=== PATIENT | female | born 1955 | race Caucasian/White ===

== ENCOUNTER 2018-02-19 12:51 | Observation (INO) ==
[2018-02-19] MEDS ORDERED: Aspirin 325 MG Tablet PO ONE (13:20)
--- NOTE | 2018-02-19 13:27 | ED ---
HPI General Chief Complaint: Chest Pain Stated Complaint: cardiac Time Seen by Provider: 02/19/18 13:07 Source: patient and family Mode of arrival: ambulatory Limitations: no limitations History of Present Illness HPI narrative: 62 y/o female notes chest pain since yesterday. She states it goes up into her jaw. She states she will get sweaty. She denies other associated complaints. She notes history of high cholesterol but denies cardiac issues. She states she saw Dr. Hodges one year ago who did a CAT scan and wanted to do a stress test but it was going to be too expensive so she held off. She states she has not had any issues since then. She denies taking an aspirin yet today. She denies any active chest pain currently. complaint: chest pain Complete Quality Measures for STEMI Alert Patients STEMI Alert: No Duration: intermittent Pain location: substernal Pain radiation: jaw/teeth Relieving factors: nothing Exacerbating factors: nothing Treatments prior to arrival chest pain: none Related Data Home Medications Medication Instructions Recorded Confirmed clonazepam 1 mg PO PRN 02/19/18 02/19/18 cyclobenzaprine 10 mg PO TID PRN 02/19/18 02/19/18 folic acid 1 mg PO DAILY 02/19/18 02/19/18 gabapentin 300 mg PO TID 02/19/18 02/19/18 leflunomide 20 mg PO DAILY 02/19/18 02/19/18 metoprolol tartrate 25 mg PO DAILY 02/19/18 02/19/18 morphine 15 mg PO BID 02/19/18 02/19/18 morphine 30 mg PO TID 02/19/18 02/19/18 prednisone 2.5 mg PO DAILY 02/19/18 02/19/18 rosuvastatin 20 mg PO DAILY 02/19/18 02/19/18 Allergies Allergy/AdvReac Type Severity Reaction Status Date / Time meloxicam Allergy Unknown Bleeding Verified 02/19/18 13:22 penicillin G Allergy Unknown Anaphylaxis Verified 02/19/18 13:22 topiramate Allergy Unknown Dizziness Verified 02/19/18 13:22 verapamil Allergy Unknown Dizziness Verified 02/19/18 13:22 Review of Systems ROS: all other systems reviewed are negative [facility] Medical History Medical History Arthritis (Acute) Back pain (Acute) Cysts of both ovaries (Acute) High cholesterol (Acute) Migraines (Acute) Surgical History Surgical History History of appendectomy (Acute) Hx of tonsillectomy (Acute) Social History Social History Substance History: No History of Abuse Smoking Status: Never smoker How Often Do You Have a Drink Containing Alcohol: Never Recent Travel in [facility] within the Last 8 Weeks: No Recent Out of Country Travel within the Last 8 Weeks: No Immunization History Tetanus Immunization: >5 Years Hx Influenza Vaccine This Season: Yes Exam Narrative Exam Narrative: GENERAL: 62 y/o female in no apparent distress SKIN: Focused skin assessment warm/dry. HEAD: Atraumatic. Normocephalic. EYES: Pupils equal and round. No scleral icterus. No injection or drainage. ENT: No nasal bleeding or discharge. Mucous membranes pink and moist. NECK: Trachea midline. No JVD. CARDIOVASCULAR: Regular rate and rhythm. No murmur appreciated. RESPIRATORY: No accessory muscle use. Clear to auscultation. Breath sounds equal bilaterally. GASTROINTESTINAL: Abdomen soft, non-tender, nondistended. Hepatic and splenic margins not palpable. MUSCULOSKELETAL: No obvious deformities. No clubbing. No cyanosis. No edema. NEUROLOGICAL: Awake and alert. No obvious cranial nerve deficits. Motor grossly within normal limits. Normal speech. PSYCHIATRIC: Appropriate mood and affect; insight and judgment normal. Course Reevaluation(s) Reevaluation #1: Patient updated and agrees to chest pain center observation Initial Documented Vital Signs Temperature 98.4 F 02/19/18 12:59 Pulse Rate 82 02/19/18 12:59 Respiratory Rate 17 02/19/18 12:59 Blood Pressure 141/101 H 02/19/18 12:59 Pulse Oximetry 99 02/19/18 12:59 Last Documented Vital Signs Temperature 98.4 F 02/19/18 12:59 Pulse Rate 78 02/19/18 14:07 Respiratory Rate 18 02/19/18 14:07 Blood Pressure 125/74 02/19/18 14:07 Pulse Oximetry 95 02/19/18 14:07 Medical Decision Making MDM Narrative Medical decision making narrative: Will check workup and dose with aspirin nitro and reevaluate. Cardiac risk factors are age and high cholesterol Medical Screen Exam Complete: Yes Emergency Medical Condition: Yes Differential Diagnosis Differential Diagnosis: Musculoskeletal, gastritis, atypical cardiac Lab Data Lab results reviewed: Yes I reviewed the patient's lab results. Result diagrams: 02/19/18 13:23 02/19/18 13:23 Lab Results 02/19/18 02/19/18 02/19/18 Range/Units 13:23 13:23 13:23 WBC 4.4 (4.0-11.0) th/mm3 RBC 4.27 (4.00-5.30) mil/mm3 Hgb 12.0 (11.6-15.3) gm/dL Hct 36.5 (35.0-46.0) % MCV 85.6 (80.0-100.0) fL MCH 28.1 (27.0-34.0) pg MCHC 32.8 (32.0-36.0) % RDW 13.9 (11.6-17.2) % Plt Count 204 (150-450) th/mm3 MPV 8.9 (7.0-11.0) fL Neut % (Auto) 55.2 (16.0-70.0) % Lymph % (Auto) 31.1 (9.0-44.0) % [place] % (Auto) 9.8 H (0.0-8.0) % Eos % (Auto) 2.7 (0.0-4.0) % Baso % (Auto) 1.2 (0.0-2.0) % Neut # (Auto) 2.4 (1.8-7.7) th/mm3 Lymph # (Auto) 1.4 (1.0-4.8) th/mm3 [place] # (Auto) 0.4 (0.0-0.9) th/mm3 Eos # (Auto) 0.1 (0.0-0.4) th/mm3 Baso # (Auto) 0.1 (0.0-0.2) th/mm3 WBC Differential . Differential Comment Auto diff final PT 10.6 (9.8-11.6) sec INR 1.0 Ratio APTT 25.9 (24.3-30.1) sec D-Dimer Quant (PE/DVT) (0.00-0.50) mg/L FEU Sodium 140 (136-145) meq/L Potassium 3.6 (3.5-5.1) meq/L Chloride 106 (98-107) meq/L Carbon Dioxide 27.9 (21.0-32.0) meq/L Anion Gap 6 (5-15) meq/L BUN 31 H (7-18) mg/dL Creatinine 0.70 (0.50-1.00) mg/dL Estimated GFR 85 L (>89) mL/min Random Glucose 106 (74-106) mg/dL Calcium 8.7 (8.5-10.1) mg/dL Magnesium (1.5-2.5) mg/dL Total Bilirubin 0.5 (0.2-1.0) mg/dL AST 28 (15-37) U/L ALT 37 (10-53) U/L Alkaline Phosphatase 59 (45-117) U/L Total Creatine Kinase 197 H (26-192) U/L CK-MB (CK-2) 5.7 H (0.5-3.6) ng/mL CK-MB (CK-2) % 2.9 (0.0-4.0) % Troponin I Less than 0.02 L (0.02-0.05) ng/mL Total Protein 7.7 (6.4-8.2) g/dL Albumin 3.8 (3.4-5.0) g/dL 02/19/18 02/19/18 Range/Units 13:23 13:23 WBC (4.0-11.0) th/mm3 RBC (4.00-5.30) mil/mm3 Hgb (11.6-15.3) gm/dL Hct (35.0-46.0) % MCV (80.0-100.0) fL MCH (27.0-34.0) pg MCHC (32.0-36.0) % RDW (11.6-17.2) % Plt Count (150-450) th/mm3 MPV (7.0-11.0) fL Neut % (Auto) (16.0-70.0) % Lymph % (Auto) (9.0-44.0) % [place] % (Auto) (0.0-8.0) % Eos % (Auto) (0.0-4.0) % Baso % (Auto) (0.0-2.0) % Neut # (Auto) (1.8-7.7) th/mm3 Lymph # (Auto) (1.0-4.8) th/mm3 [place] # (Auto) (0.0-0.9) th/mm3 Eos # (Auto) (0.0-0.4) th/mm3 Baso # (Auto) (0.0-0.2) th/mm3 WBC Differential Differential Comment PT (9.8-11.6) sec INR Ratio APTT (24.3-30.1) sec D-Dimer Quant (PE/DVT) 0.34 (0.00-0.50) mg/L FEU Sodium (136-145) meq/L Potassium (3.5-5.1) meq/L Chloride (98-107) meq/L Carbon Dioxide (21.0-32.0) meq/L Anion Gap (5-15) meq/L BUN (7-18) mg/dL Creatinine (0.50-1.00) mg/dL Estimated GFR (>89) mL/min Random Glucose (74-106) mg/dL Calcium (8.5-10.1) mg/dL Magnesium 2.2 (1.5-2.5) mg/dL Total Bilirubin (0.2-1.0) mg/dL AST (15-37) U/L ALT (10-53) U/L Alkaline Phosphatase (45-117) U/L Total Creatine Kinase (26-192) U/L CK-MB (CK-2) (0.5-3.6) ng/mL CK-MB (CK-2) % (0.0-4.0) % Troponin I (0.02-0.05) ng/mL Total Protein (6.4-8.2) g/dL Albumin (3.4-5.0) g/dL Imaging Data Attestation: I personally reviewed and interpreted this imaging study as follows : Radiologist's impression: Chest X-Ray 02/19/18 13:07 CONCLUSION: Negative examination. Discharge Plan Discharge Disposition Patient Disposition: 30 Still Patient Discharge Condition Condition: Stable Discharge Details Diagnosis: Chest pain Physicians Team ED Provider: Maggy Samson Primary Care Provider: Parvez Jenkins Attending Provider: Gordon Jeffrey Status ED Status: Admitted Observation Patient
[2018-02-19 13:42] LABS: Baso # (Auto) 0.1 th/mm3 (0.0-0.2); Baso % (Auto) 1.2 % (0.0-2.0); Eos # (Auto) 0.1 th/mm3 (0.0-0.4); Eos % (Auto) 2.7 % (0.0-4.0); Hematocrit 36.5 % (35.0-46.0); Lymph # (Auto) 1.4 th/mm3 (1.0-4.8); Lymph % (Auto) 31.1 % (9.0-44.0); Mean Corpuscular HGB Conc 32.8 % (32.0-36.0); Mean Corpuscular Hemoglobin 28.1 pg (27.0-34.0); Mean Corpuscular Volume 85.6 fL (80.0-100.0); Mean Platelet Volume 8.9 fL (7.0-11.0); Mono # (Auto) 0.4 th/mm3 (0.0-0.9); Mono % (Auto) 9.8 % (0.0-8.0); Neut # (Auto) 2.4 th/mm3 (1.8-7.7); Neut % (Auto) 55.2 % (16.0-70.0); Platelet Count 204 th/mm3 (150-450); Red Blood Count 4.27 mil/mm3 (4.00-5.30); Red Cell Distribution Width 13.9 % (11.6-17.2); White Blood Count 4.4 th/mm3 (4.0-11.0)
[2018-02-19 13:52] LABS: Activated Partial Thrombo Time 25.9 sec (24.3-30.1); Prothrombin Time 10.6 sec (9.8-11.6)
--- NOTE | 2018-02-19 13:57 | XR ---
EXAM DATE: 02/19/2018 1:38 PM EDT AGE/SEX: 62 years / Female INDICATIONS: Right sided chest pain. CLINICAL DATA: This is the patient's initial encounter. Patient reports that signs and symptoms have been present for 4 - 6 days and indicates a pain score of 10/10. MEDICAL/SURGICAL HISTORY: None. None. COMPARISON: POI, XR CHEST PA AND LAT, 05/24/2015. . FINDINGS: A single AP view of the chest demonstrates the lungs to be symmetrically aerated without evidence of mass, infiltrate or effusion. The cardiomediastinal contours are unremarkable. Osseous structures a re intact. CONCLUSION: Negative examination. Electronically signed by: Alan Enriquez MD 02/19/2018 1:55 PM EDT
[2018-02-19 13:59] LABS: Alanine Aminotransferase 37 U/L (10-53); Albumin 3.8 g/dL (3.4-5.0); Anion Gap 6 meq/L (5-15); Aspartate Aminotransferase 28 U/L (15-37); Blood Urea Nitrogen 31 mg/dL (7-18); Calcium 8.7 mg/dL (8.5-10.1); Carbon Dioxide 27.9 meq/L (21.0-32.0); Chloride 106 meq/L (98-107); Glomerular Filtration Rate 85 mL/min (>89); Glucose,Random 106 mg/dL (74-106); Potassium 3.6 meq/L (3.5-5.1); Sodium 140 meq/L (136-145)
[2018-02-19 14:02] LABS: Alkaline Phosphatase 59 U/L (45-117); Creatine Kinase 197 U/L (26-192); Total Protein 7.7 g/dL (6.4-8.2)
[2018-02-19 14:14] LABS: CKMB Percent 2.9 % (0.0-4.0); Creatine Kinase MB 5.7 ng/mL (0.5-3.6)
[2018-02-19] MEDS ORDERED: Acetaminophen 500 MG Tablet PO PRN (14:29)
--- NOTE | 2018-02-19 15:02 | P.HPCA ---
History of Present Illness Primary Care Physician: Parvez Jenkins Chief Complaint: Chest pain History of Present Illness: 62-year-old female with history of chronic back pain, spinal stenosis, and hyperlipidemia presents emergency room for further evaluation of right-sided chest pain. Onset Saturday afternoon. Became diaphoretic then developed right axillary pain with radiation to right anterior chest with bilateral jaw pain. Severe in severity. Hurt to take a deep breath or move during pain episode. No associated symptoms of nausea, vomiting, or dyspnea. Duration 5 minutes. No precipitating or relieving factors. No recent injury, illness, or fever. Longstanding history of migraine headaches. Most recent migraine began on Saturday , didn't resolve until Saturday. No chest pain episodes on Saturday. Experienced 2 chest pain episodes today, once around 0930 am and again around 1100. Duration each episode 10 minutes. No precipitating factors. No current chest discomfort. Denies history of CAD, hypertension, or diabetes. Family history noncontributory for early onset cardiovascular disease. Endorses similar pain approximately 1 year ago. At that time she was seen evaluated by Dr. Trevor Hodges. Reports an EKG and a CT scan was completed. Instructed to return if pain returned for further cardiac testing. 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 - Tobacco History Second Hand Smoke Exposure: No Tobacco Use In Past 30 Days: No Smoking Status: Never smoker - Alcohol History How Often Do You Have a Drink Containing Alcohol: Never - Substance Use History Substance History: No History of Abuse - Travel History Recent Travel in the [place] Within the Last 8 Weeks: No Recent Travel Out of the Country Within the Last 8 Weeks: No - Immunization History Tetanus Immunization: >5 Years Hx Influenza Vaccine This Season: Yes Medications and Allergies Active Medications: Active Medications Acetaminophen (Tylenol) 500 mg PO Q4H PRN PRN Reason: HEADACHE Aspirin (Aspirin) 325 mg PO DAILY ZACHERY Nitroglycerin (Nitrostat Sl) 0.4 mg SL Q5M PRN PRN Reason: CHEST PAIN Ondansetron HCl (Zofran Inj) 4 mg IV.PUSH Q6H PRN PRN Reason: NAUSEA Sodium Chloride (Ns Flush) 2 ml IV.FLUSH UNSCH PRN PRN Reason: FLUSH AFTER USING IV ACCESS Sodium Chloride (Ns Flush) 2 ml IV.FLUSH BID [facility] Allergies Allergy/AdvReac Type Severity Reaction Status Date / Time meloxicam Allergy Unknown Bleeding Verified 02/19/18 13:22 penicillin G Allergy Unknown Anaphylaxis Verified 02/19/18 13:22 topiramate Allergy Unknown Dizziness Verified 02/19/18 13:22 verapamil Allergy Unknown Dizziness Verified 02/19/18 13:22 Home Medications Medication Instructions Recorded Confirmed Type clonazepam 1 mg PO PRN 02/19/18 02/19/18 History cyclobenzaprine 10 mg PO TID PRN 02/19/18 02/19/18 History folic acid 1 mg PO DAILY 02/19/18 02/19/18 History gabapentin 300 mg PO TID 02/19/18 02/19/18 History leflunomide 20 mg PO DAILY 02/19/18 02/19/18 History metoprolol tartrate 25 mg PO DAILY 02/19/18 02/19/18 History morphine 15 mg PO BID 02/19/18 02/19/18 History morphine 30 mg PO TID 02/19/18 02/19/18 History prednisone 2.5 mg PO DAILY 02/19/18 02/19/18 History rosuvastatin 20 mg PO DAILY 02/19/18 02/19/18 History Exam Vital signs: Vital Signs 02/19/18 12:59 02/19/18 13:11 02/19/18 13:20 Temperature 98.4 F Pulse Rate 82 81 Respiratory Rate 17 18 Blood Pressure 141/101 H 152/81 H Pulse Oximetry 99 95 95 02/19/18 14:07 02/19/18 14:43 Temperature Pulse Rate 78 84 Respiratory Rate 18 18 Blood Pressure 125/74 121/71 Pulse Oximetry 95 96 Intake & Output 02/18/18 02/19/18 02/19/18 18:59 06:59 18:59 Weight 58.967 kg Narrative: GENERAL: Alert WN, WD, NAD, pleasant, female HEAD: NC, AT EYES: Sclera clear, conjunctiva without injection, pupils equal and round ENT: Mucous membranes pink and moist CV: RRR, without murmur, rub, gallop, no JVD. Chest wall nontender to palpation. RESP: Clear lungs throughout bilateral, no crackles, wheeze, rhonchi, symmetrical chest rise, nonlabored, able to speak in full sentences ABD: Soft, NT, ND, no masses, positive bowel tones EXT: Pulses +2x4, no dependent edema MS: Normal tone x4 extremities, nontender, no obvious deformities, full range of motion NEURO: CN II through CN XII grossly intact, motor strength 5/5 PSYCH: A+O x3, anxious affect, appropriate speech, insight and judgment SKIN: Normal turgor, normal texture, no lesions, no rashes, even hair distribution Results 02/19/18 13:23 02/19/18 13:23 Cardiac Enzymes 02/19/18 Range/Units 13: AST 28 (15-37) U/L CK-MB (CK-2) 5.7 H (0.5-3.6) ng/mL Troponin I Less than 0.02 L (0.02-0.05) ng/mL Coagulation 02/19/18 Range/Units 13:23 PT 10.6 (9.8-11.6) sec APTT 25.9 (24.3-30.1) sec CBC 02/19/18 Range/Units 13:23 WBC 4.4 (4.0-11.0) th/mm3 RBC 4.27 (4.00-5.30) mil/mm3 Hgb 12.0 (11.6-15.3) gm/dL Hct 36.5 (35.0-46.0) % Plt Count 204 (150-450) th/mm3 Neut # (Auto) 2.4 (1.8-7.7) th/mm3 Lymph # (Auto) 1.4 (1.0-4.8) th/mm3 [place] # (Auto) 0.4 (0.0-0.9) th/mm3 Eos # (Auto) 0.1 (0.0-0.4) th/mm3 Baso # (Auto) 0.1 (0.0-0.2) th/mm3 Comprehensive Metabolic Panel 02/19/18 Range/Units 13:23 Sodium 140 (136-145) meq/L Potassium 3.6 (3.5-5.1) meq/L Chloride 106 (98-107) meq/L Carbon Dioxide 27.9 (21.0-32.0) meq/L BUN 31 H (7-18) mg/dL Creatinine 0.70 (0.50-1.00) mg/dL Calcium 8.7 (8.5-10.1) mg/dL AST 28 (15-37) U/L ALT 37 (10-53) U/L Alkaline Phosphatase 59 (45-117) U/L Total Protein 7.7 (6.4-8.2) g/dL Albumin 3.8 (3.4-5.0) g/dL Intake and Output 02/19/18 02/19/18 02/19/18 06:59 14:59 22:59 Other: Weight 58.967 kg Patient Weight 02/20/18 06:59 Weight 58.967 kg EKG interpretations - EKG EKG results cardiology: sinus rhythm, normal axis, normal QRS (NSR, nonspecific t wave change) Caprini VTE Risk Assessment Caprini VTE Risk Assessment: Moderate/High Risk (score >= 2) Caprini Risk Assessment Model: Point Value = 1 Point Value = 2 Point Value = 3 Point Value = 5 Age 41-60 Minor surgery BMI > 25 kg/m2 Swollen legs Varicose veins or History of unexplained or recurrent spontaneous Oral contraceptives or hormone replacement Sepsis (< 1 month) Serious lung disease, including pneumonia (< 1 month) Abnormal pulmonary function Acute myocardial infarction Congestive heart failure (< 1 month) History of inflammatory bowel disease Medical patient at bed rest Age 61-74 Arthroscopic surgery Major open surgery (> 45 min) Laparoscopic surgery (> 45 min) Malignancy Confined to bed (> 72 hours) Immobilizing plaster cast Central venous access Age >= 75 History of VTE Family history of VTE Factor V Leiden Prothrombin 54086V Lupus anticoagulant Anticardiolipin antibodies Elevated serum homocysteine Heparin-induced thrombocytopenia Other congenital or acquired thrombophilia Stroke (< 1 month) Elective arthroplasty Hip, pelvis, or leg fracture Acute spinal cord injury (< 1 month) Prophylaxis Regimen: Total Risk Factor Score Risk Level Prophylaxis Regimen 0-1 Low Early ambulation 2 Moderate Order ONE of the following: *Sequential Compression Device (SCD) *Heparin 5000 units SQ BID 3-4 Higher Order ONE of the following medications: *Heparin 5000 units SQ TID *Enoxaparin/Lovenox 40 mg SQ daily (WT < 150 kg, CrCl > 30 mL/min) *Enoxaparin/Lovenox 30 mg SQ daily (WT < 150 kg, CrCl > 10-29 mL/min) *Enoxaparin/Lovenox 30 mg SQ BID (WT < 150 kg, CrCl > 30 mL/min) AND/OR *Sequential Compression Device (SCD) 5 or more Highest Order ONE of the following medications: *Heparin 5000 units SQ TID (Preferred with Epidurals) *Enoxaparin/Lovenox 40 mg SQ daily (WT < 150 kg, CrCl > 30 mL/min) *Enoxaparin/Lovenox 30 mg SQ daily (WT < 150 kg, CrCl > 10-29 mL/min) *Enoxaparin/Lovenox 30 mg SQ BID (WT < 150 kg, CrCl > 30 mL/min) AND *Sequential Compression Device (SCD) Assessment and Plan - Assessment (1) Atypical chest pain Code(s): R07.89 - Other chest pain Status: Acute Plan: Admitted to chest pain center. Rule out ACS with 3 sets of EKGs and cardiac enzymes. Seen and evaluated by Dr. Gordon Jeffrey. Monitor overnight and once ACS ruled out plan to proceed with lexiscan in a.m. Patient agreeable to plan of care and agreeable to plan of care. (2) Chronic back pain Code(s): M54.9 - Dorsalgia, unspecified; G89.29 - Other chronic pain Status: Chronic Plan: Continue home medications, morphine, diclofenac, leflunomide, and cyclobenzaprine. (3) History of hyperlipidemia Code(s): Z86.39 - Personal history of other endocrine, nutritional and metabolic disease Status: Chronic Plan: Continue rosuvastatin. (4) History of migraine headaches Code(s): Z86.69 - Personal history of other diseases of the nervous system and sense organs Status: Chronic Plan: Continue gabapentin TID and Imitrex PRN. (5) History of anxiety Code(s): Z86.59 - Personal history of other mental and behavioral disorders Status: Chronic Plan: Continue clonazepam. (2) Chronic back pain Qualifiers: Back pain location: low back pain
[2018-02-19 17:24] LABS: Creatine Kinase 143 U/L (26-192)
[2018-02-19] MEDS: Morphine Sulfate 30 MG IR Tablet PO SCH ×2 (17:57→21:11)
[2018-02-19] MEDS: Metoprolol Tartrate 25 MG Tablet PO SCH (20:23)
[2018-02-19 21:06] LABS: Creatine Kinase 149 U/L (26-192)
[2018-02-19] MEDS: Gabapentin 300 MG Capsule PO SCH (21:11)
[2018-02-20] MEDS: Gabapentin 300 MG Capsule PO SCH (07:12)
[2018-02-20] MEDS: Morphine Sulfate 30 MG IR Tablet PO SCH (07:12)
--- NOTE | 2018-02-20 08:15 | P.PNCA ---
Subjective Interval history: Two episodes of right sided chest discomfort last evening around 2200 and 2330. Duration 5 minutes, quick onset, gradually resolved. No associated symptoms nausea, vomiting, dyspnea, or diaphoresis. Physical Exam Vital signs: Vital Signs 02/19/18 12:59 02/19/18 13:11 02/19/18 13:20 Temperature 98.4 F Pulse Rate 82 81 Respiratory Rate 17 18 Blood Pressure 141/101 H 152/81 H Pulse Oximetry 99 95 95 02/19/18 14:07 02/19/18 14:43 02/19/18 16:00 Temperature 97.8 F Pulse Rate 78 84 80 Respiratory Rate 18 18 16 Blood Pressure 125/74 121/71 138/80 Pulse Oximetry 95 96 95 02/19/18 19:48 02/19/18 21:11 02/19/18 21:48 Temperature 98.3 F Pulse Rate 90 79 69 Respiratory Rate 20 15 Blood Pressure 108/72 121/65 Pulse Oximetry 96 96 02/20/18 04:00 Temperature 98.2 F Pulse Rate 72 Respiratory Rate Blood Pressure 103/57 L Pulse Oximetry 95 Intake & Output 02/19/18 02/20/18 02/20/18 18:59 06:59 18:59 Weight 58.967 kg Other: # Voids 1 Date of Last Bowel Movement 02/19/18 Weight On Admission 58.967 kg - Constitutional no acute distress - Routine HEENT Exam Head: Present: normocephalic, atraumatic - Routine Neck Exam Present: supple, full ROM - Routine Respiratory Exam Present: CTA bilaterally. Absent: rhonchi, stridor, wheezes, crackles - Routine Cardiovascular Exam Present: RRR. Absent: murmur, gallop, rubs - Routine Abdominal Exam Present: soft, normoactive bowel sounds. Absent: tenderness, distended Assessment and Plan - Assessment (1) Atypical chest pain Code(s): R07.89 - Other chest pain Status: Acute Plan: ACS ruled out overnight. Proceed with Lexiscan this morning. If unremarkable, plans to discharge home with follow up with PCP. (2) Chronic back pain Code(s): M54.9 - Dorsalgia, unspecified; G89.29 - Other chronic pain Status: Chronic Plan: Continue home medications, morphine, diclofenac, leflunomide, and cyclobenzaprine. (3) History of hyperlipidemia Code(s): Z86.39 - Personal history of other endocrine, nutritional and metabolic disease Status: Chronic Plan: Continue rosuvastatin. (4) History of migraine headaches Code(s): Z86.69 - Personal history of other diseases of the nervous system and sense organs Status: Chronic Plan: Continue gabapentin TID (5) History of anxiety Code(s): Z86.59 - Personal history of other mental and behavioral disorders Status: Chronic Plan: Continue clonazepam. (2) Chronic back pain Qualifiers: Back pain location: low back pain
[2018-02-20] MEDS ORDERED: predniSONE 5 MG Tablet PO SCH (09:00)
[2018-02-20] MEDS ORDERED: LEFLUNOMIDE 20 MG PO SCH (09:00)
[2018-02-20] MEDS ORDERED: Folic Acid 1 MG Tablet PO SCH (09:00)
[2018-02-20] MEDS ORDERED: Aspirin 325 MG Tablet PO SCH (09:00)
[2018-02-20] MEDS ORDERED: Metoprolol Tartrate 25 MG Tablet PO SCH (09:00)
[2018-02-20] MEDS: Metoprolol Tartrate 25 MG Tablet PO SCH (09:04)
[2018-02-20] MEDS ORDERED: Regadenoson Inj 0.4 MG/5 ML Syringe IV.PUSH ONE (10:22)
--- NOTE | 2018-02-20 10:50 | ECG ---
Date Performed: 02/19/2018 Time Performed: 13:12:21 PTAGE: 62 years EKG: Sinus rhythm NONSPECIFIC T-WAVE ABNORMALITY BORDERLINE ECG NO PREVIOUS TRACING DOCTOR: Александр Roque Interpretating Date/Time 02/20/2018 10:45:26
--- NOTE | 2018-02-20 10:59 | ECG ---
Date Performed: 02/19/2018 Time Performed: 19:44:14 PTAGE: 62 years EKG: Sinus rhythm NONSPECIFIC T-WAVE ABNORMALITY BORDERLINE ECG Since the PREVIOUS TRACING , no significant change noted PREVIOUS TRACIN02/19/2018 16.37 DOCTOR: Александр Roque Interpretating Date/Time 02/20/2018 10:57:41
--- NOTE | 2018-02-20 11:00 | ECG ---
Date Performed: 02/19/2018 Time Performed: 16:37:42 PTAGE: 62 years EKG: Sinus rhythm NONSPECIFIC T-WAVE ABNORMALITY BORDERLINE ECG Since the PREVIOUS TRACING , no significant change noted PREVIOUS TRACIN02/19/2018 16.36 DOCTOR: Александр Roque Interpretating Date/Time 02/21/2018 07:36:26
--- NOTE | 2018-02-20 11:41 | NM ---
EXAM DATE: 02/20/2018 11:26 AM EDT AGE/SEX: 62 years / Female INDICATIONS:Angina. . Right chest pain radiating to the right jaw with diaphoresis. CLINICAL DATA: This is the patient's initial encounter. Patient reports that signs and symptoms have been present for 1 day and indicates a pain score of 9/10. MEDICAL/SURGICAL HISTORY: Hypercholesterolemia. Spinal stenosis. Tubal ligation. Appendectomy . Tonsillectomy. Neurostimulator implant. COMPARISON: No prior exams available for comparison. DOSE: 8.5 mCi Tc 99m Myoview at rest 26.3 mCi [id number] at stress 0.4 mg Lexiscan STRESS SYMPTOMS: Numbness and tingling sensation in arms. EJECTION FRACTION: 69 % TECHNIQUE: The patient underwent pharmacologic stress with infusion of prescribed dose. Continuous ECG tracing was monitored during stress. Gated SPECT imaging was performed after stress and conventi onal SPECT imaging was performed at rest. The examination was performed on a SPECT/CT scanner, both attenuation and non-corrected datasets were reviewed. FINDINGS: Distribution: The maximum perfused segment at stress is in the anterior lateral wall. Perfusion Study: The pattern of perfusion at stress is within normal limits. Gated Study: There are intact wall motion and wall thickening without hypokinetic or dyskinetic segm ents. The ejection fraction is calculated at 69%. RISK CATEGORY: Low (<1% Annual Motality Rate) CONCLUSION: 1. Unremarkable myocardial perfusion study. Electronically signed by: Ruy Garcia MD 02/20/2018 11:39 AM EDT
[2018-02-20 11:49] VITALS: BP 120/58; PULSE 81; RESP 20; TEMP 97.2; O2SAT 96
--- NOTE | 2018-02-20 15:59 | TR ---
Date Performed: 02/20/2018 Time Performed: 10:27:10 DOCTOR: Gordon Jeffrey DRUG LIST: CLINICAL HISTORY: REASON FOR TEST: REASON FOR ENDING: OBSERVATION: CONCLUSION: COMMENTS: Lexiscan stress test was performed under standard four minute protocol. Radionuclide was injected one minute prior to ending the test. No electrocardiographic abormalities were present t o suggest ischemia. Nuclear imaging and interpretation are pending.
== END 2018-02-20 12:52 | disposition home or self-care (01) ==
LOC: NEDA 12:51 → NEPC 12:51 → NEPFCDU 15:32
PROVIDERS: ADMIT Internal Medicine Cardiovascular Disease; ATTEND Internal Medicine Cardiovascular Disease